=== PATIENT | male | born 1980 | race Caucasian/White ===

== ENCOUNTER → 2020-10-18 11:48 | Outpatient (BNVA) | payer OTHER, SELFPAY | PROVIDERS: Family Provider Family Medicine Adult Medicine; Visit Provider Family Medicine | DX: U07.1 COVID-19 (principal) | CPT/HCPCS: 87635 ==

== ENCOUNTER → 2022-05-27 09:46 | Outpatient (BNVA) | payer OTHER, SELFPAY | PROVIDERS: Family Provider Family Medicine Adult Medicine; Visit Provider Otolaryngology | DX: H69.82 Other specified disorders of Eustachian tube, left ear (principal); M26.623 Arthralgia of bilateral temporomandibular joint; F17.210 Nicotine dependence, cigarettes, uncomplicated; H91.92 Unspecified hearing loss, left ear; H93.12 Tinnitus, left ear | CPT/HCPCS: 99203 ==

== ENCOUNTER → 2022-11-03 13:00 | Outpatient (BNVA) | payer OTHER, SELFPAY | PROVIDERS: Family Provider Family Medicine Adult Medicine; PCP Family Medicine; Visit Provider Internal Medicine | DX: I10 Essential (primary) hypertension (principal); E78.5 Hyperlipidemia, unspecified; R00.2 Palpitations; R06.02 Shortness of breath; F17.200 Nicotine dependence, unspecified, uncomplicated | CPT/HCPCS: 99204 ==

== ENCOUNTER 2022-12-05 06:14 | Outpatient (CLI) | payer OTHER, SELFPAY ==
--- NOTE | 2022-12-05 06:30 | USCV_ITS ---
Mitul Zavala Age: 42 Gender: M : 1980 Exam Date: 12/05/2022 06:31 Ordering Phys: Eliecer Beal M.D ([email or web address]) Technologist: [place] [facility] [place]: short of breath abnormal rythium BP: 140 / 80 HR: 91 Rhythm: Sinus Technical Quality: Adequate MEASUREMENTS (Male / Female) Normal Values 2D ECHO LV Diastolic Diameter PLAX 3.1 cm 4.2 - 5.9 / 3.9 - 5.3 cm LV Systolic Diameter PLAX 1.9 cm IVS Diastolic Thickness 1.2 cm 0.6 - 1.0 / 0.6 - 0.9 cm IVS Systolic Thickness 1.1 cm LVPW Diastolic Thickness 1.1 cm 0.6 - 1.0 / 0.6 - 0.9 cm LVPW Systolic Thickness 1.3 cm LVOT Diameter 2.0 cm LV Ejection Fraction 2D Teich 70.8 % LV Ejection Fraction MOD 2C 66.0 % LV Ejection Fraction 2C AL 65.3 % LA Diameter 3.4 cm Aorta at Sinotubular Diameter 2.4 cm M-MODE Aortic Annulus Diameter 3.4 cm LA Ao Ratio MM 1.1 MV E Point Septal Separation 0.9 cm DOPPLER AV Peak Velocity 156.0 cm/s LVOT Peak Velocity 119.0 cm/s AV Area Cont Eq vti 3.1 cm squared AV Area Cont Eq pk 2.4 cm squared MV Area PHT 5.0 cm squared Mitral E to A Ratio 1.1 MV E' Velocity 39.0 cm/s Mitral E to MV E' Ratio 6.8 Mitral E to LV E' Lateral Ratio 5.7 Mitral E to LV E' Septal Ratio 8.4 TR Peak Velocity 173.0 cm/s TR Peak Gradient 12.0 mmHg TV Peak E Velocity 85.0 cm/s Right Atrial Pressure 3.0 mmHg Pulmonary Artery Systolic Pressu 15.0 mmHg RV Acceleration Time 0.1 s FINDINGS Left Ventricle Left ventricle is normal in size. LV systolic function is normal with EF of 60 to 65%. No regional wall motion abnormalities are seen. Diastolic function is normal. Right Ventricle Normal in size and function Right Atrium Normal in size Left Atrium Normal in size Mitral Valve Structurally normal mitral valve. Trace mitral regurgitation Aortic Valve Structurally normal aortic valve. No significant stenosis or regurgitation. Tricuspid Valve Mild tricuspid regurgitation. Pulmonary artery systolic pressure is normal Pulmonic Valve Not well-visualized Pericardium Normal Aorta Normal in size IVC Appears to be normal CONCLUSIONS LV systolic function is normal with EF of 60 to 65% Diastolic function is normal. Trace mitral regurgitation Mild tricuspid regurgitation No comparison studies are available Eliecer Beal MD (Electronically Signed) Final Date: 13 December 2022 17:07 S
== END 2022-12-05 06:15 | disposition home or self-care (01) ==
PROVIDERS: Family Provider Family Medicine Adult Medicine; PCP Family Medicine; Visit Provider Internal Medicine
DX: R06.02 Shortness of breath (principal); I08.1 Rheumatic disorders of both mitral and tricuspid valves
CPT/HCPCS: 93306

== ENCOUNTER → 2022-12-30 09:52 | Outpatient (BNVA) | payer OTHER, SELFPAY | PROVIDERS: Family Provider Family Medicine Adult Medicine; PCP Family Medicine; Visit Provider Internal Medicine | DX: E78.5 Hyperlipidemia, unspecified (principal); I10 Essential (primary) hypertension; R00.2 Palpitations; R07.9 Chest pain, unspecified; F17.200 Nicotine dependence, unspecified, uncomplicated | CPT/HCPCS: 99214 ==

== ENCOUNTER 2023-01-04 06:21 | Outpatient (CLI) | payer OTHER, SELFPAY ==
--- NOTE | 2023-01-04 | ECG_ITS ---
[facility] Test Date: 2023-01-04 Pat Name: Mitul Zavala Department: Room: Gender: Male Statistician Theoretical: Maria D Curry : 1980 Requested By: Eliecer Beal Order Number: [id number] Quincy MD: Christopher Heard M.D. Interpretive Statements NAME OF STUDY: EXERCISE SESTAMIBI STRESS TEST INDICATION: Chest Pain PROCEDURE: The baseline electrocardiogram showed normal sinus rhythm with normal ST-Ts. At the baseline, the patient's blood pressure was 148/89 mm Hg with a heart rate of 97. The patient exercised for 7 minutes and 47 seconds on a standard Francis protocol. Patient attained a maximum heart rate of 173 beats per minute(97% of the maximum predicted heart rate) with a blood pressure at the peak exercise of 207/80 mm Hg. The EKG at the peak exercise revealed no significant changes. Patient did not have any chest pain or any significant arrhythmis with the exercise Sestamibi was injected 1 minute prior to the peak exercise During the recovery phase, there were no new changes. Blood pressure at the end of the recovery phase was 139/101 mm Hg with a heart rate of 111 per minute. CONCLUSION: 1. No significant EKG changes with the [treadmill exercise 2. No exercise-induced chest pain or cardiac arrhythmia. 3. Hypertensive response to exercise 4. Good exercise tolerance, attained a maximum of 10.2 METs 5. Sestamibi/Sestamibi perfusion results pending; see separate report. Electronically Signed On 01-08-2023 23:32:15 CDT by Christopher Heard M.D. [email or web address]
[2023-01-04 06:45] VITALS: BMI 36.5
--- NOTE | 2023-01-04 07:27 | NMCV_ITS ---
NM renato perf SPECT r/s* [id number] Mitul Zavala Age: 42 Gender: M : 1980 Exam Date: 01/04/2023 07:42 Ordering Phys: Eliecer Beal M.D ([email or web address]) Technologist: JERICA Suggs Exam Location: [facility] Indications: CHEST PAIN STRESS TEST [facility] IMAGE PROTOCOL Rest/Stress 1 Exercise Day Radiopharmaceutical Dose (mCi) Administration Site Administered by Rest: Tc-99m 10.7 IV JERICA Nesbitt Sestamibi Stress:Tc-99m 32.6 IV JERICA Nesbitt Sestamijonh Rest: 04-Jan-2023 60 Discovery 630 Stress: 04-Jan-2023 15 Discovery 630 Radiopharmaceutical was injected at 95 % maximum heart rate. Images obtained in supine and prone position. SPECT RESULTS Technical Quality: Excellent Raw Data Analysis: Normal Image Corrections: No attenuation or motion correction applied Summed Stress Score: 1 Summed Rest Score: 0 Summed Difference Score: 1 PERFUSION FINDINGS A small area of slightly decreased tracer uptake was noted in the mid anterolateral region with some reversibility, in the supine imaging. With prone imaging, there was no significant reversible defects FUNCTIONAL RESULTS (calculated via Gated SPECT) Stress Image LV EF (%): 77 Stress EDV (mL):94 TID: 0.88 Stress ESV (mL):22 FUNCTIONAL FINDINGS: Segmental wall motion analysis revealing no gross wall motion abnormalities IMPRESSIONS 1. Myocardial perfusion imaging revealing a small area of slightly decreased tracer uptake in the mid anterolateral region with some reversibility may suggest ischemia in the distribution of the left circumflex artery. However with the prone imaging, no significant reversible defects were noted. Most likely it is a false positive test 2. Normal LV ejection fraction 77%. 3. LV wall motion analysis revealing no gross wall motion abnormalities. 4. Normal LV volume. Low probability for coronary ischemia, based on the above findings. Clinical correlation is recommended Dr Christopher Heard MD FACC (Electronically Signed) Final Date: 04 January 2023 12:52 S
[2023-01-04 09:00] VITALS: BP 139/101; PULSE 116
== END 2023-01-04 06:22 | disposition home or self-care (01) ==
LOC: CDL 06:26
PROVIDERS: Family Provider Family Medicine Adult Medicine; PCP Family Medicine; Visit Provider Internal Medicine
DX: R07.9 Chest pain, unspecified (principal); I10 Essential (primary) hypertension
CPT/HCPCS: 36415; 78452; 93017; A9500

== ENCOUNTER 2023-05-04 10:06 | Emergency (ER) | payer OTHER, SELFPAY ==
[2023-05-04 10:18] VITALS: BP 171/108; PULSE 102; RESP 18; O2SAT 98; BMI 36.5
[2023-05-04] MEDS: LORazepam 2 mg/mL INJ 1 mL 1 MG IVP ×2 (10:43→11:04)
[2023-05-04] MEDS: HYDROmorphone 1 mg/mL INJ 1 mL IVP ×2 (10:44→11:05)
--- NOTE | 2023-05-04 11:08 | W.ED.ABDPA2 ---
HPI - Abdominal Pain General: Chief Complaint: Abdominal Pain Stated Complaint: sent by [facility]rosemaryy button pain/(umbilical hernia) Time Seen by Provider: 05/04/23 10:18 Source: patient Mode of arrival: ambulatory Limitations: no limitations History of Present Illness: 42-year-old male who states he has had an umbilical hernia for years he states that he has not been able to reduce it over the last day has been having increasing pain he states is the first time he has not been able to reduce it. He states pain is sharp in nature rates it a 7 out of 10 he denies any worsening improving factors. Associated Symptoms: Denies chills, diarrhea, fever(s), nausea and vomiting Review of Systems Const: Denies: fever(s), chills, body aches or change in appetite Eyes: Denies: blurry vision or eye discomfort ENMT: Denies: throat pain or dental pain Card: Denies: chest pain Resp: Denies: dyspnea GI: Reports: abdominal pain; Denies: nausea, vomiting or diarrhea Musc: Denies: neck pain or back pain Skin/Breast: Denies: rash Neuro: Denies: headache(s) Psych: Denies: depression PFSH ED PFSH: Medical History Hyperlipemia Hypertension Sleep apnea Family History Mother Hypertension Grandfather Hypertension Social History Smoking and tobacco status: current every day smoker (half a pack ) Physical Exam Const: COMMON NORMALS: no acute distress, patient oriented x3 and healthy appearing HENMT: COMMON NORMALS: normocephalic and atraumatic HEAD & SCALP: normocephalic and atraumatic Neck/C-Spine: COMMON NORMALS: full ROM and supple Chest: COMMONS NORMALS: normal inspection of the chest and normal palpation of entire chest wall Resp: COMMON NORMALS: normal respiratory effort, No retractions, No use of accessory muscles and clear to auscultation bilaterally AUSCULTATION: clear to auscultation bilaterally Cardio: COMMON NORMALS: regular rate, regular rhythm and No murmurs present (Cardio) RATE: regular rate RHYTHM: regular rhythm GI: COMMON NORMALS: Normal to inspection, nondistended, normoactive bowel sounds present, Soft to palpation and no masses PALPATION: Yes Soft to palpation OTHER: Umbilical hernia noted Extremity: COMMON NORMALS: normal to inspection and full ROM Neuro: COMMON NORMALS: patient oriented x3, moves all extremities and no focal motor deficits Psych: COMMON NORMALS: mental status grossly normal, Normal thought process present and cooperative THOUGHT PROCESS: Normal thought process present Skin: COMMON NORMALS: no rashes or lesions noted and no wounds GENERAL SKIN EXAM: no rashes or lesions noted Procedures Procedural Sedation Indication: other (hernia reduction) ASA Class: I Time of Last PO Intake: 08:00 Preparation: monitor car operator applied and pulse oximeter IV Propofol dose (mg): 140 Patient Tolerated Procedure: well Complications: none Course Vital Signs: Vital signs: Vital Signs Pulse Rate 88 05/04/23 11:45 Respiratory Rate 17 05/04/23 11:45 Blood Pressure 149/101 05/04/23 11:45 Pulse Oximetry 97 05/04/23 11:45 Oxygen Delivery Me thod Room Air 05/04/23 11:45 MDM - Abdominal Pain Medical Decision Making Patient presents with umbilical hernia I was able to reduce it under sedation he feels much improved we will prescribe him pain meds for home we will get him follow-up with surgery he is return if worsening. Discharge Plan Discharge Patient Disposition: Home Clinical Impression: Hernia, umbilical Condition: Stable Prescriptions: New hydrocodone-acetaminophen 5-325 mg tablet 1 tab PO Q6H PRN (Reason: pain) Qty: 14 0RF No Action hydrochlorothiazide 25 mg tablet 12.5 mg PO DAILY Reguloid (psyllium husk) 3 gram/5.4 gram powder 1 tbsp PO DAILY Rx Instructions: mix into at least 8 oz of water or juice before administering cholecalciferol (vitamin D3) 325 mcg (13,000 unit) capsule 325 mcg PO DAILY Fish Oil 120-180 mg capsule 1 cap PO DAILY cyanocobalamin (vitamin B-12) 1,000 mcg capsule 1,000 mcg PO DAILY fluticasone furoate 50 mcg/actuation blister with device 1 inh inhalation DAILY lisinopril 40 mg tablet 20 mg PO DAILY Men's Multivitamin 400-20-300 mcg Tablet 1 tab PO DAILY Discharge Orders: Discharge ED (Routine); Ordered 05/04/23 Ordered By: Cassandra Lubin Referrals: Jasen Daily DO [Physician] - 1-3 days Ely Casarez MD [Primary Care Provider] - Discharge Diet: Advance as tolerated Discharge Activity: Resume usual activity Patient Instructions: Umbilical Hernia (ED), Opioid Safety Coding Level of Care Code ED Termite Control Representative for Lalitog Benoit
[2023-05-04 11:30] VITALS: BP 155/96; PULSE 86; RESP 18; O2SAT 99
[2023-05-04] MEDS: propofol 10 mg/mL SDV 20 mL 40 MG IVP (11:35)
[2023-05-04 11:45] VITALS: BP 149/101; PULSE 88; RESP 17; O2SAT 97
[2023-05-04] MEDS: propofol 10 mg/mL SDV 20 mL 100 MG IVP (11:46)
--- NOTE | 2023-05-04 11:49 | PC.NURSE ---
moderate sedation, 140 of fentanyl given by Az
[2023-05-04 12:22] VITALS: PULSE 85; RESP 15; O2SAT 99
== END 2023-05-04 12:23 | disposition home or self-care (01) ==
PROVIDERS: Emergency Provider Emergency Medicine; PCP Family Medicine
DX: K42.9 Umbilical hernia without obstruction or gangrene (principal); I10 Essential (primary) hypertension; E78.5 Hyperlipidemia, unspecified; F17.210 Nicotine dependence, cigarettes, uncomplicated
CPT/HCPCS: 94799; 96374; 96375; 96376; 99152; 99284; J1170; J2060; J2704

== ENCOUNTER → 2023-11-23 14:19 | Outpatient (BNVA) | payer OTHER, SELFPAY | PROVIDERS: PCP Family Medicine; Visit Provider Internal Medicine | DX: E78.5 Hyperlipidemia, unspecified (principal); I10 Essential (primary) hypertension; R00.2 Palpitations; Z72.0 Tobacco use | CPT/HCPCS: 99213 ==

== ENCOUNTER → 2024-11-21 14:23 | Outpatient (BNVA) | payer OTHER, SELFPAY | PROVIDERS: PCP Family Medicine; Visit Provider Internal Medicine | DX: E78.5 Hyperlipidemia, unspecified (principal); I10 Essential (primary) hypertension; R00.2 Palpitations; Z72.0 Tobacco use | CPT/HCPCS: 99214 ==